=== PATIENT | female | born 1990 | race Caucasian/White ===

== ENCOUNTER → 2017-10-02 | Emergency (ER) | payer OTHER ==
[~2017-10-02] VITALS: Ht 147.3 cm; Wt 64.4 kg
[~2017-10-02] MED LIST: HUMALOG100 UNIT/1; LANTUS SOL100 UNIT/1
== END | disposition home or self-care (01) ==
LOC: ER 21:48
DX: O20.8 Other hemorrhage in early pregnancy (principal); Z34.01 Encounter for supervision of normal first pregnancy, first trimester